=== PATIENT | male | born 1970 | race Caucasian/White ===

== ENCOUNTER → 2021-02-26 07:36 | Outpatient (CLI) | payer MEDICARE, SELFPAY ==
--- NOTE | 2021-02-26 07:38 | CA_ITS ---
APPROVED REPORT EXAM: Comprehensive 2D, Doppler, and color-flow Echocardiogram Marketing Strategy Analyst: KEYSHAWN An, RVS Ht: 6 ft 1 in Wt: 263lbs BSA: 2.42 BP: 102/52 mmHg Indications: Aortic Arch dilation, Pre-op clearance for Right shoulder Sx, HTN, DM, HLD 2D Dimensions LVDd 5.55 cm LA Volume 77.70 mL Aortic Root 4.27 cm LA Volume Index 32.10 mL/m2 (M/F) 16-34 Left Atrium 3.21 cm LVOT 2.56 cm (M/F) 1.5-2.5 Ascending Aorta 4.32 cm M-Mode Dimensions RVDd 2.58 cm (0.9-2.6) LA Diam 4.11 cm (1.9-4.0) LVDd 5.50 cm (3.5-5.7) Ao Diam 4.34 cm (2.0-3.7) LVDs 3.19 cm (3.5-5.7) IVSd 0.98 cm (0.6-1.1) PWd 1.17 cm (0.6-1.1) EF (Teich) 78.60% EPSs 0.66 cm FS 48.00% EDV (Teich) 189.70 mL TAPSE 2.58 (<1.7) ESV (Teich) 40.60 mL LV Diastology E Decel Time 237.00 (160-240 msec) E/A Ratio 1.85 MED E' 7.00 (< 7 cm/sec) MED A' 9.10 cm/s E'/MED E' Ratio 19.23 (>14) LAT E' 8.40 (<10 cm/sec) LAT A' 10.10 cm/s E/LAT E' Ratio 16.02 (>14) Aortic Valve LVOT Max 69.00 (70-110 cm/s) LVOT VTI 13.23 cm AoV Peak Juvenal. 111.00 (50-130 cm/s) AO Peak GR. 4.90 mmHg AO Mean GR. 2.50 (<5 mmHg) AO VTI 21.34 (18-25 cm) TRI (VTI) 3.19 (2.5-4.5 cm2) Mitral Valve MV A Velocity 73.00 (40-130 cm/s) E/A Ratio 1.85 MV Decel. Time 237.00 (160-240 ms) MV Mean Gr. 1.90 (<2mmHg) Pulmonary Valve PV Peak Velocity 87.00 (50-150 cm/s) Left Ventricle Left atrium is mildly enlarged, left ventricle is normal size, mild concentric left ventricular hypertrophy, visually estimated ejection fraction 55% with no regional wall motion abnormality, diastolic parameters are inconclusive. Right Ventricle Right atrium and right ventricle are normal size and contractility. Aortic Valve Aortic valve is grossly normal, there is no aortic stenosis or aortic insufficiency, ascending aorta and aortic root appears to be normal size. Mitral Valve Mitral valve grossly normal, there is trace mitral regurgitation. Tricuspid Valve Tricuspid valve grossly normal, there is trace tricuspid regurgitation, tricuspid regurgitation jet velocity is inadequate for calculation of the right ventricular systolic pressure. Pulmonic Valve Pulmonic valve is poorly visualized. Great Vessels Aortic root is normal size. Inferior vena cava is poorly visualized. Pericardium No significant pericardial effusion noted. Conclusion 1. Normal left ventricular size, mild concentric left ventricular hypertrophy, visually estimated ejection fraction 55% with no regional wall motion abnormality, diastolic parameters are inconclusive. 2. Trace mitral and tricuspid regurgitation. 3. The aortic root and ascending aorta is normal size. 4. No significant pericardial effusion noted. Electronically signed by : Ollie Mckeon MD 02/26/2021 19:39:53
== END ==
PROVIDERS: PCP Family Medicine; Visit Provider Physician Assistant
DX: E11.9 Type 2 diabetes mellitus without complications (principal); E78.2 Mixed hyperlipidemia; I11.0 Hypertensive heart disease with heart failure; I25.118 Atherosclerotic heart disease of native coronary artery with other forms of angina pectoris; I50.32 Chronic diastolic (congestive) heart failure; N18.2 Chronic kidney disease, stage 2 (mild); Z01.810 Encounter for preprocedural cardiovascular examination; Z79.4 Long term (current) use of insulin
CPT/HCPCS: 93306

== ENCOUNTER → 2021-08-15 13:44 | Outpatient (CLI) | payer MEDICARE, SELFPAY ==
--- NOTE | 2021-08-15 13:45 | CT_ITS ---
FINAL REPORT CLINICAL HISTORY: dilation of aortic arch FINDINGS: Thin section axial CT images of the chest were obtained with contrast. 3D reformatted images were also obtained. This study was performed with techniques to keep radiation doses as low as reasonably achievable (ALARA). Individualized dose reduction techniques using automated exposure control or adjustment of mA and/or kV according to the patient's size were employed. There is no evidence of pulmonary embolism. There is ectasia of the ascending aorta up to 39 mm. There is no evidence of thoracic aortic aneurysm or dissection. There are diffuse coronary artery calcifications. There is no evidence of mediastinal or hilar mass or adenopathy. There is mild bibasilar atelectasis. There are several small bilateral pulmonary nodules. Limited images of the upper abdomen are unremarkable. IMPRESSION: Ectasia of the ascending aorta without aneurysm or dissection. Several small bilateral pulmonary nodules. No mass or localized inflammatory process. Reviewed, Interpreted and Dictated by Eduardo Murry III, MD Transcribed by Jose Luis Méndez Authenticated and [facility]
[2021-08-15 14:16] LABS: Blood Urea Nitrogen 33 mg/dl (9-20); Estimated Glomerular Filt Rate 43 ml/min (>60); GFR (African American) 52 ML/MIN (>60)
== END ==
PROVIDERS: PCP Family Medicine; Visit Provider Nurse Practitioner
DX: E11.9 Type 2 diabetes mellitus without complications (principal); E78.2 Mixed hyperlipidemia; I11.0 Hypertensive heart disease with heart failure; I25.118 Atherosclerotic heart disease of native coronary artery with other forms of angina pectoris; I50.32 Chronic diastolic (congestive) heart failure; I77.819 Aortic ectasia, unspecified site; Z79.4 Long term (current) use of insulin
CPT/HCPCS: 36415; 71275; 82565; 84520; Q9967

== ENCOUNTER → 2022-11-28 11:36 | Outpatient (CLI) | payer MEDICARE, SELFPAY ==
[2022-11-28 12:30] VITALS: PULSE 60; PULSE 65
--- NOTE | 2022-11-28 13:04 | CT_ITS ---
FINAL REPORT TECHNIQUE: Axial CT images were performed from the lung apices through the upper abdomen. Coronal reformats were submitted. This study was performed with techniques to keep radiation doses as low as reasonably achievable (ALARA). Individualized dose reduction techniques using automated exposure control or adjustment of mA and/or kV according to the patient's size were employed. CLINICAL HISTORY: Lung nodules, 12-month follow-up, October 2022 COMPARISON: 08/15/2021 FINDINGS: There is no axillary adenopathy. There is no hilar or mediastinal mass or adenopathy. Heart size is normal. The ascending aorta is ectatic and stable at 41 mm. There are severe coronary artery calcifications. There is mild gynecomastia. There is no pericardial or pleural effusion. There are several less than 5 mm bilateral pulmonary nodules. A lateral right lower lobe nodule on image 47 measures 4 mm and previously measured 4 mm. Other small nodes are visually stable. There is no new mass or nodule. Limited images of the upper abdomen are unremarkable. IMPRESSION: Stable, less than 5 mm pulmonary nodules are likely benign. Additional follow-up chest CT is recommended in 12 months. Stable, ectasia of the thoracic aorta. Severe coronary artery calcifications. Reviewed, Interpreted and Dictated by Eduardo Murry III, MD Transcribed by Diana Kilpatrick Authenticated and [facility]
== END ==
LOC: RT 11:37
PROVIDERS: PCP Nurse Practitioner Family; Visit Provider Internal Medicine Pulmonary Disease
DX: R91.8 Other nonspecific abnormal finding of lung field (principal); R06.09 Other forms of dyspnea
CPT/HCPCS: 71250; 94060; 94640; 94726; 94727; 94729

== ENCOUNTER 2023-03-31 09:08 | Outpatient (CLI) | payer MEDICARE, SELFPAY ==
[2023-03-31 09:30] LABS: Basophils # 0.1 K/mm3 (0-0.2); Basophils % 0.9 % (0.1-2.0); Eosinophils # 0.3 K/mm3 (0.0-0.4); Eosinophils % 4.8 % (0.1-12.0); Hematocrit 46.6 % (42.0-52.0); Hemoglobin 15.2 g/dL (14.1-18.0); Lymphocytes # 2.6 K/mm3 (0.7-4.5); Lymphocytes % 39.3 % (10-50); Mean Corpuscular HGB Conc 32.5 g/dL (31.8-35.4); Mean Corpuscular Hemoglobin 29.4 pg (27.0-31.2); Mean Corpuscular Volume 90.3 fl (80-94); Mean Platelet Volume 8.4 fl (7.4-10.4); Monocytes # 0.4 K/mm3 (0.1-1.0); Monocytes % 5.8 % (1.7-9.3); Neutrophils # 3.2 K/mm3 (1.8-7.8); Neutrophils % 49.2 % (37.0-80.0); Platelet Count 220 K/mm3 (142-424); Red Blood Count 5.16 M/mm3 (4.60-6.20); Red Cell Distribution Width 14.7 % (11.5-17.5); White Blood Count 6.5 K/mm3 (4.8-10.8)
[2023-03-31 10:13] LABS: Alanine Aminotransferase 25 U/L (12-78); Albumin Level 4.4 g/dl (3.5-5.0); Alkaline Phosphatase 47 U/L (38-126); Anion Gap 11.8 mEq/L (5-15); Aspartate Amino Transferase 27 U/L (17-59); Bilirubin,Direct 0.2 mg/dl (0.0-0.4); Bilirubin,Indirect 0.1 mg/dL (0.0-0.9); Bilirubin,Total 0.3 mg/dl (0.2-1.3); Bilirubin,Unconjugated 0.2 mg/dL (0.0-1.1); Blood Urea Nitrogen 23 mg/dl (9-20); Calcium 9.4 mg/dl (8.4-10.2); Carbon Dioxide 29 mmol/L (22.0-30.0); Chloride 102 mmol/L (98-107); Chol/HDL Ratio 4.9 (1-3.5); Cholesterol 185 mg/dl (140-200); Estimated Glomerular Filt Rate 43 ml/min (>60); GFR (African American) 52 ML/MIN (>60); Glucose 115 mg/dl (74-100); HDL Cholesterol 38 mg/dl (40-60); Magnesium 2.1 mg/dl (1.6-2.3); Potassium 3.8 mmoL/L (3.5-5.1); Sodium 139 mmol/L (136-145); Total Protein,Serum 6.8 g/dl (6.3-8.2); Triglycerides 355 mg/dl (30-150); VLDL Cholesterol 71 mg/dL (0-40)
[2023-03-31 10:24] LABS: Direct LDL Cholesterol 77.65 mg/dL (100-129)
[2023-03-31 10:28] LABS: Free T4 (Free Thyroxine) 1.19 ng/dl (0.78-2.19)
[2023-03-31 10:31] LABS: Hemoglobin A1C 5.9 % (4.0-6.0)
== END 2023-03-31 23:59 ==
PROVIDERS: PCP Nurse Practitioner Family; Visit Provider Nurse Practitioner
DX: E11.9 Type 2 diabetes mellitus without complications (principal); E78.5 Hyperlipidemia, unspecified; I11.9 Hypertensive heart disease without heart failure; I25.10 Atherosclerotic heart disease of native coronary artery without angina pectoris; N18.2 Chronic kidney disease, stage 2 (mild); Z79.4 Long term (current) use of insulin
CPT/HCPCS: 36415; 80048; 80061; 80076; 83036; 83735; 84439; 84443; 85025

== ENCOUNTER 2023-10-05 06:47 | Outpatient (CLI) | payer MEDICARE, SELFPAY ==
--- NOTE | 2023-10-05 | CA_ITS ---
APPROVED REPORT Exam: Pharmacologic Technologist: Luz Maria Luther, Ht: 6 ft 0 in Wt: 275 lbs BSA: 2.44 m2 HR: 54 bpm BP: 104/51 mmHg Rhythm: NSR Medical History Medications: Aspirin,,,,, Gabapentin,,,,, Losartan,,,,, Allopurinol,,,,, Iron,,,,, Flonase,,,,, Farxiga,,,,, XaRELTO,,,,, Albuterol,,,,, DulOXETINE,,,,, FeNOfibrate,,,,, Nitroglycerin,,,,, Stress Test Details Test: LEXISCAN Reason for pharmacologic stress test: physical limitation. HR Resting HR: 55 bpm Max Heart Rate (APMHR): 168 bpm Max HR Achieved: 71 bpm Target HR (85% APMHR): 143 bpm % of APMHR: 42 Recovery HR: 62 bpm BP Resting BP: 104.0/51.0 mmHg Max BP: 105.0/55.0 mmHg Recovery BP: 100.0/54.0 mmHg ECG Resting ECG: NSR, PRWP Anteriorly, possible old Anterior MT Stress ECG: No significant ST changes Arrhythmia: None Clinical Exercise duration: 04:01 min Highest Stage Achieved: Exercise capacity: 1.0 METs Stress ECG Conclusion Symptoms: none Arrhythmias/Ectopy: none ST-T Changes: No significant ST changes Conclusion: Unremarkable Lexiscan stress test. Myoview images reported separately. Test Summary REST 01:00 . . 55 . 104/ 51 . . Stage 1 01:00 . . 63 . . . . Stage 2 01:00 . . 68 . 105/ 55 . . Stage 3 01:00 . . 66 . 102/ 52 . . Stage 4 01:00 . . 64 . 104/ 57 . . Stage 4 01:01 . . 64 . 104/ 57 . Stop exercise at 04:01 RECOVERY 01:00 . . 64 . . . . RECOVERY 02:00 . . 64 . 100/ 54 . . RECOVERY 02:09 . . 62 . 100/ 54 . . Electronically signed by : Steffi Vargas MD 10/05/2023 15:31:36
--- NOTE | 2023-10-05 06:48 | CA_ITS ---
FINAL REPORT TECHNIQUE: Color Doppler, duplex Doppler and ariza scale sonography of the bilateral neck arterial vasculature was performed. Velocities were measured in the carotid arteries. Stenosis evaluation based on the validated velocity criteria. CLINICAL HISTORY: dizziness, HTN, HLD, DM, CAD. COMPARISON: None FINDINGS: The peak systolic velocity of the right common carotid artery is 103 cm/s. The peak systolic velocity of the right internal carotid artery is 68 cm/s and end diastolic velocity 19 cm/s. The ICA/CCA ratio is 1.2. A mild amount of plaque is present. The right external carotid artery is patent. The right vertebral artery is patent with antegrade flow. The peak systolic velocity of the left common carotid artery is 105 cm/s. The peak systolic velocity of the left internal carotid artery is 72 cm/s and end diastolic velocity 26 cm/s. The ICA/CCA ratio is 0.8. A mild amount of plaque is present. The left external carotid artery is patent.The left vertebral artery is patent with antegrade flow. IMPRESSION: Less than 50% bilateral carotid stenoses. The vertebral arteries were not visualized secondary to patient inability to position. Consider CTA for further evaluation. Reviewed, Interpreted and Dictated by Eduardo Murry III, MD Transcribed by Isamar Jackson Authenticated and [facility]
--- NOTE | 2023-10-05 06:51 | NM_ITS ---
APPROVED REPORT Exam: Nuclear Stress Test Indication: Chest pain, SOB, HTN, DM, High cholesterol, Family history, CAD Patient Location: Outpatient Stress Tech: Luz Maria Peralta MT Tech:Bertha Loredo, ARRT, RT (R)(N) Ht: 6 ft 0 in Wt: 280 lbs HR: 55 bpm BP: 104/51 mmHg BSA: 2.46 m2 Rhythm: NSR TID: 1.06 History: Chest pain, SOB, HTN, DM, High cholesterol, Family history, CAD Procedure: Patient received 0.4 mg of intravenous Lexiscan, resting heart rate 55 bpm, resting blood pressure 104/51 mmHg, with Lexiscan maximum heart rate achieved was 71 bpm which is % of the maximum predicted heart rate and blood pressure was 105/55 mmHg. With Lexiscan, patient denied any complaint of chest pain. Cardiac Stress and Resting SPECT Images: Cardiac Stress and Resting SPECT images were obtained using technetium 99m Myoview 30.1 mCi stress and 10.89 mCi at rest. Resting and stress imaging in supine and prone positions demonstrate a medium-sized, moderate, reversible perfusion defect in the basal to mid to inferior and inferolateral LV monroy. Gated imaging demonstrates normal global and regional LV systolic function. LVEF is calculated at 61%. Conclusion: Medium-sized, moderate, reversible perfusion defect in the basal to mid to inferior and inferolateral LV monroy. Findings are suggestive of reversible ischemia. Gated imaging demonstrates normal global and regional LV systolic function. LVEF is calculated at 61%. Electronically signed by : Steffi Vargas MD 10/05/2023 15:44:18
[2023-10-05] MEDS: SODIUM CHLORIDE 0.9% 10ML SYR (RAD ONLY) 10 ML IV ×2 (09:27)
[2023-10-05] MEDS: REGADENOSON 0.4MG/5ML SYRINGE 0.4 MG IV (09:27)
[2023-10-05] MEDS: ISOTOPE MYOVIEW (PER STUDY) 1 DOSE IV (09:27)
== END 2023-10-05 23:59 | disposition home or self-care (01) ==
LOC: RAD 06:48
PROVIDERS: PCP Nurse Practitioner Family; Visit Provider Nurse Practitioner
DX: R42 Dizziness and giddiness (principal); I25.118 Atherosclerotic heart disease of native coronary artery with other forms of angina pectoris; R06.02 Shortness of breath
CPT/HCPCS: 78452; 93017; 93018; 93880; A9502; J2785

== ENCOUNTER 2023-11-12 08:17 | Day surgery (SDC) | payer MEDICARE, SELFPAY ==
[2023-11-12] VITALS (11 sets, daily range): BP systolic 104–179; BP diastolic 56–93; PULSE 54–66; RESP 16–18; TEMP 37; O2SAT 91–99; BMI 37.7
--- NOTE | 2023-11-12 07:07 | IR_ITS ---
APPROVED REPORT Patient Location: Outpatient Spot Checker: ROYAL Conklin RT (R) PROCEDURES Left heart catheterization Selective coronary angiogram INDICATION Abnormal Myoview, Known coronary artery disease, Angina pectoris Informed consent was obtained prior to the procedure. COMPLICATIONS NONE Estimated Blood Loss: LESS THAN 10 ML TECHNIQUE One percent lidocaine used to anesthetize the right anterior aspect of the wrist. The right radial artery was accessed via the Seldinger technique. A 6 Sammar[place] sheath was placed in the right radial artery. 2.5 mg of Verapamil, 800 mcg of nitroglycerin, 1mg Lidocaine and 5000 U Heparin were given through the arterial sheath. The papa catheter was also used to perform left heart catheterization, left ventriculogram and selective coronary angiogram. At the end of the procedure the sheath was removed good hemostasis was achieved using Traclet band, patient was transferred to the postop holding area in stable condition. ANGIOGRAPHIC RESULTS The left main artery Normal The left anterior descending artery Is a large-caliber vessel with mid vessel 10 to 20% luminal irregularities The circumflex artery 's large it still nondominant and gives rise to medium sized ramus intermedius which is widely patent. The circumflex artery has proximal 20% stenoses and gives rise to 3 medium sized obtuse marginal arteries. The first obtuse marginal artery has an ostial proximal 30 to 40% stenosis while the second obtuse marginal artery which is 2.5 mm in diameter has an ostial 70% stenosis. The third obtuse marginal artery is smaller than the first 2 OM's with mild luminal regularities The right coronary artery Is dominant with diffuse 20 and 30% stenosis The MORTENSEN ventriculogram reveals Not performed The left ventricular end-diastolic pressure 20 mmHg IMPRESSION Coronary artery disease disease as described above most notably with moderate to severe stenosis in the ostial segment of a second obtuse marginal artery which is not ideal for treatment as this would nursing home the third obtuse marginal artery. Elevated LVEDP PLAN 1. Patient is currently on 1 antianginal medication. Recommend maximizing antianginal medications and strongly favor medical management 2. LDL less than 55 achieved high intensity statin 3. It is unlikely the obtuse marginal artery is producing significant angina. Suspect the elevated LVEDP is a contributing factor to the angina Electronically signed by : Mitul Corbett MD 11/12/2023 10:40:55
[2023-11-12 09:11] LABS: Basophils # 0.1 K/mm3 (0-0.2); Basophils % 1.2 % (0.1-2.0); Eosinophils # 0.4 K/mm3 (0.0-0.4); Eosinophils % 5.3 % (0.1-12.0); Hematocrit 49.8 % (42.0-52.0); Hemoglobin 15.6 g/dL (14.1-18.0); Lymphocytes # 2.7 K/mm3 (0.7-4.5); Lymphocytes % 38.3 % (10-50); Mean Corpuscular HGB Conc 31.2 g/dL (31.8-35.4); Mean Corpuscular Hemoglobin 29.6 pg (27.0-31.2); Mean Corpuscular Volume 94.8 fl (80-94); Monocytes # 0.4 K/mm3 (0.1-1.0); Monocytes % 5.9 % (1.7-9.3); Neutrophils # 3.5 K/mm3 (1.8-7.8); Neutrophils % 49.3 % (37.0-80.0); Platelet Count 258 K/mm3 (142-424); Red Blood Count 5.25 M/mm3 (4.60-6.20); Red Cell Distribution Width 14.5 % (11.5-17.5); White Blood Count 7.1 K/mm3 (4.8-10.8)
[2023-11-12 09:24] LABS: Anion Gap 11.9 mEq/L (5-15); Blood Urea Nitrogen 24 mg/dl (9-20); Calcium 9.6 mg/dl (8.4-10.2); Carbon Dioxide 32 mmol/L (22.0-30.0); Chloride 100 mmol/L (98-107); Creatinine Clearance Estimated 77 mL/min (50-200); Estimated Glomerular Filt Rate 35 ml/min (>60); GFR (African American) 43 ML/MIN (>60); Glucose 157 mg/dl (74-100); Potassium 3.9 mmoL/L (3.5-5.1); Sodium 140 mmol/L (136-145)
[2023-11-12] MEDS: LIDOCAINE 1% 10ML MDV 20 ML IJ (10:00)
[2023-11-12] MEDS: HEPARIN 1,000 UNITS/ML 10ML VIAL (CATH LAB) 10000 UNIT IV (10:00)
[2023-11-12] MEDS: HEPARIN 1,000 UNITS/500ML NS (CATH LAB) 3000 UNIT IV (10:01)
[2023-11-12] MEDS: diphenhydrAMINE 50MG/ML VIAL 50 MG IV (10:01)
[2023-11-12] MEDS: NITROGLYCERIN 800MCG/8ML SYR (CATH LAB) 800 MCG IA (10:01)
[2023-11-12] MEDS: 0.9 % SODIUM CHLORIDE 500 ML 25 ML IV (10:02)
[2023-11-12] MEDS: VERAPAMIL 2.5MG/ML 2ML VIAL 2.5 MG IV (10:02)
[2023-11-12] MEDS: MIDAZOLAM HCL 1MG/1ML 5ML VIAL 1 MG IV (10:38)
[2023-11-12] MEDS: FENTANYL 100MCG/2ML VIAL 50 MCG IV (10:39)
[2023-11-12 12:07] LABS: POC Glucose,Bedside 124 (70-110)
[2023-11-12] MEDS: IOPAMIDOL-370 (76%);100ML BOTTLE 50 ML IV (14:15)
== END 2023-11-12 13:10 | disposition home or self-care (01) ==
LOC: CATHLAB 08:21
PROVIDERS: Visit Provider Internal Medicine
DX: I25.118 Atherosclerotic heart disease of native coronary artery with other forms of angina pectoris (principal); E78.2 Mixed hyperlipidemia; N18.2 Chronic kidney disease, stage 2 (mild); R06.02 Shortness of breath; I50.32 Chronic diastolic (congestive) heart failure; R42 Dizziness and giddiness; R93.1 Abnormal findings on diagnostic imaging of heart and coronary circulation; I77.9 Disorder of arteries and arterioles, unspecified; E11.22 Type 2 diabetes mellitus with diabetic chronic kidney disease; I13.0 Hypertensive heart and chronic kidney disease with heart failure and stage 1 through stage 4 chronic kidney disease, or unspecified chronic kidney disease; Z79.4 Long term (current) use of insulin; Z79.899 Other long term (current) drug therapy
CPT/HCPCS: 80048; 82962; 85025; 93454; 99152; 99153; C1725; C1760; C1769; J1200; J1644; J2250; J3010; Q9967

== ENCOUNTER 2024-02-03 07:18 | Outpatient (CLI) | payer MEDICARE, SELFPAY ==
[2024-02-03 07:25] VITALS: PULSE 66; PULSE 70
[2024-02-03] MEDS: ALBUTEROL 0.083% 2.5 MG/3 ML NEB IH (07:25)
== END 2024-02-03 23:59 | disposition home or self-care (01) ==
LOC: RT 07:19
PROVIDERS: PCP Nurse Practitioner Family; Visit Provider Internal Medicine Pulmonary Disease
DX: J44.9 Chronic obstructive pulmonary disease, unspecified (principal)
CPT/HCPCS: 94060; 94640; J7613